=== PATIENT | female | born 1985 | race Two or more races ===

== ENCOUNTER 2018-02-06 09:29 | Emergency (ER) | payer OTHER ==
[2018-02-06 09:39] VITALS: BP 127/68; PULSE 80; TEMP 98.8; BMI 31.4
[2018-02-06] MEDS ORDERED: AZITHROMYCIN 500 MG TABLET PO ONE (10:02)
--- NOTE | 2018-02-06 10:05 | PDOC ---
History of Present Illness - General Chief Complaint: Pain Stated Complaint: VAGINAL DISCOMFORT Time Seen by Provider: 02/06/18 09:52 History Source: Patient Exam Limitations: No Limitations - History of Present Illness Travel History: No Initial Comments: 02/06/18 10:03 32 yr female with c/o vaginal discharge for one week lower pelvic pain, noticed "bumps" with burning to the vaginal area today. Pt denies any nvd. Timing/Duration: reports: constant Quality: reports: moderate Past History - Past Medical History Allergies/Adverse Reactions: Allergies Allergy/AdvReac Type Severity Reaction Status Date / Time No Known Allergies Allergy Verified 02/06/18 09:39 Home Medications: Ambulatory Orders Acyclovir [Zovirax -] 400 mg PO TID #21 tablet 02/06/18 COPD: No Other medical history: gastric sleeve 2013 - Surgical History Abdominal Surgery: Yes (tummy tuck,liposuction 2016, gastric sleeve 2013) Cholecystectomy: Yes - Suicide/Smoking/Psychosocial Hx Smoking History: Never smoked Information on smoking cessation initiated: No Hx Alcohol Use: No Drug/Substance Use Hx: No Substance Use Type: None *Physical Exam - Vital Signs Last Vital Signs Temp Pulse Resp BP Pulse Ox 98.8 F 80 19 127/68 99 02/06/18 09:36 02/06/18 09:36 02/06/18 09:36 02/06/18 09:36 02/06/18 09:36 - Physical Exam General Appearance: Yes: Nourished, Appropriately Dressed HEENT: positive: EOMI, GEN Respiratory/Chest: positive: Lungs Clear, Normal Breath Sounds Cardiovascular: positive: Regular Rhythm, Regular Rate Female Pelvic Exam: positive: discharge, adnexal tenderness, other (multiple vesicles, ulcerations to the outer vaginal area to the anus) Gastrointestinal/Abdominal: positive: Normal Bowel Sounds, Soft Musculoskeletal: positive: Normal Inspection Extremity: positive: Normal Capillary Refill, Normal Inspection, Normal Range of Motion Neurologic: positive: Fully Oriented, Alert, Normal Mood/Affect, Normal Response , Motor Strength 5/5 *DC/Admit/Observation/Transfer Diagnosis at time of Disposition: Herpes genitalia Qualifiers: Herpes simplex infection site: vulvovaginitis Qualified Code(s): A60.04 - Herpesviral vulvovaginitis - Discharge Dispostion Disposition: HOME Condition at time of disposition: Good - Prescriptions Prescriptions: Acyclovir [Zovirax -] 400 mg PO TID #21 tablet - Referrals Referrals: ON STAFF,NOT [Primary Care Provider] - - Patient Instructions Additional Instructions: we will call you with the results of the cultures taken today please start the medication sent to your pharmacy avoid any sexual activity until we have notified you of the cultures please follow up with the panel fitter for follow up next week - Post Discharge Activity
[2018-02-06 10:13] LABS: HCG,QUALITATIVE URINE NEGATIVE
[2018-02-06] MEDS ORDERED: AZITHROMYCIN 250 MG TABLET ONE (10:22)
[2018-02-06 10:37] LABS: URINE APPEARANCE CLEAR; URINE BILIRUBIN NEGATIVE (<2.0 mg/dL); URINE COLOR YELLOW; URINE GLUCOSE (UA) NEGATIVE (NEGATIVE); URINE KETONE NEGATIVE (NEGATIVE); URINE NITRITE NEGATIVE (NEGATIVE); URINE PROTEIN NEGATIVE (NEGATIVE); URINE UROBILINOGEN NEGATIVE mg/dL (0.2-1.0)
[2018-02-06 10:43] LABS: URINE LEUK ESTERASE 1+ (NEGATIVE)
[2018-02-06 11:02] LABS: EPI CELLS RARE /HPF (FEW); URINE MUCUS RARE
== END 2018-02-06 12:42 | disposition home or self-care (01) ==
LOC: JERFT 09:29
DX: A60.04 Herpesviral vulvovaginitis (principal)
CPT/HCPCS: 36415; 81003; 81015; 84703; 87086; 87255; 87389; 87491; 87591; 96372; 99281-25

== ENCOUNTER 2018-10-08 14:59 | Emergency (ER) | payer OTHER ==
[2018-10-08 15:05] VITALS: BP 148/82; PULSE 86; TEMP 97.7; BMI 32.3
--- NOTE | 2018-10-08 15:40 | PDOC ---
History of Present Illness - General Chief Complaint: Pain, Acute Stated Complaint: PELVIC DISCOMFORT Time Seen by Provider: 10/08/18 15:40 History Source: Patient Exam Limitations: No Limitations - History of Present Illness Initial Comments: 10/08/18 16:00 32 year old female A1 8 weeks by LMP presented to ED for LLQ pain x2 days, worsening today.Pt stated she has had this pain intermittently the last 2 weeks, but it was more intense today. Pt stated the pain was so intense today that she felt short of breath, and that is why she came to ED today. Pt denied vaginal bleeding, lightheadedness, dysuria. Pt stated she has not been evaluated by OB or had an ultrasound performed. Pt does not have PCP. PCP: none OB: none Allergies: NKDA Past History - Past Medical History Allergies/Adverse Reactions: Allergies Allergy/AdvReac Type Severity Reaction Status Date / Time No Known Allergies Allergy Verified 10/08/18 15:03 Home Medications: Ambulatory Orders Acyclovir [Zovirax -] 400 mg PO TID #21 tablet 02/06/18 COPD: No - Surgical History Abdominal Surgery: Yes (tummy maliha,liposuction 2016, gastric sleeve 2013) Cholecystectomy: Yes - Suicide/Smoking/Psychosocial Hx Smoking History: Never smoked Hx Alcohol Use: No Drug/Substance Use Hx: No Substance Use Type: None Review of Systems - Review of Systems Able to Perform ROS?: Yes Comments:: 10/08/18 16:02 General: denied fever, chills, night sweats, generalized weakness. HEENT: denied sore throat, rhinorrhea, ear pain. Heart: denied chest pain, palpitations, syncope, lower extremity swelling, diaphoresis. Respiratory: admitted to shortness of breath. denied cough, sputum production, hemoptysis. Abdomen: denied abdominal pain, nausea, vomiting, diarrhea, constipation, blood in stool. : admitted to pelvic pain. denied dysuria, increased urinary frequency, hematuria, urinary incontinence, flank pain. Back: denied back pain. Musculoskeletal: denied joint pain, muscle pain, joint swelling. Neurological: denied headache, dizziness, numbness, tingling, weakness. Skin: denied rash, laceration, abrasion. *Physical Exam - Vital Signs Last Vital Signs Temp Pulse Resp BP Pulse Ox 97.7 F 86 18 148/82 100 10/08/18 15:03 10/08/18 15:03 10/08/18 15:03 10/08/18 15:03 10/08/18 15:03 - Physical Exam Comments: 10/08/18 16:03 Constitutional: Well-nourished, Well-developed, appearing stated age. HEENT: head is normocephalic, atraumatic. EOMI. PERRLA. Neck: supple. Full ROM. Heart: regular rhythm. no murmurs, rubs or gallops. Lungs: clear to auscultation bilaterally. no crackles, rhonchi or wheezing. no stridor. Abdomen: soft, flat. tenderness to palpation of LLQ. normal bowel sounds. no rebound, guarding, masses. Pelvic: normal external genitalia. no blood in vaginal canal. increased vascularity to cervix. cervical os closed. no CMT. left sided adnexal tenderness. Extremities: Peripheral pulses intact. No lower extremity edema. Neurological: CN 2-12 grossly intact. Moves all four extremities. Psych: awake, alert, oriented x3. Follows commands. Answers questions appropriately. Moderate Sedation - Procedure Monitoring Vital Signs: Procedure Monitoring Vital Signs Temperature 97.7 F 10/08/18 15:03 Pulse Rate 86 10/08/18 15:03 Respiratory Rate 18 10/08/18 15:03 Blood Pressure 148/82 10/08/18 15:03 O2 Sat by Pulse Oximetry (%) 100 10/08/18 15:03 ED Treatment Course - LABORATORY CBC & Chemistry Diagram: 10/08/18 16:30 10/08/18 16:30 Medical Decision Making - Medical Decision Making 10/08/18 16:03 32 year old female A1 8 weeks by LMP presented to ED for LLQ x2 weeks, worsening today. Initial Vital Signs Temp Pulse Resp BP Pulse Ox 97.7 F 86 18 148/82 100 10/08/18 15:03 10/08/18 15:03 10/08/18 15:03 10/08/18 15:03 10/08/18 15:03 Afebrile. No tachycardia. No tachypnea. Mild hypertension. No hypoxia on room air. o Labs ordered: CBC, CMP, T/S, coags, beta quant c Imaging ordered: TVUS g Medications ordered: Tylenol IV 10/08/18 17:02 c TVUS report: single viable intrauterine gestation at approximately 6 weeks 6 days. Subchorionic implantation bleed. small bilateral ovarian follicles/cysts. HR 132. CBC WBC 7.5 K/mm3 (4.0-10.0) 10/08/18 16:30 RBC 4.46 M/mm3 (3.60-5.2) 10/08/18 16:30 Hgb 14.4 GM/dL (10.7-15.3) 10/08/18 16:30 Hct 41.4 % (32.4-45.2) 10/08/18 16:30 MCV 93.0 fl (80-96) 10/08/18 16:30 MCH 32.4 pg (25.7-33.7) 10/08/18 16:30 MCHC 34.8 g/dl (32.0-36.0) 10/08/18 16:30 RDW 12.9 % (11.6-15.6) 10/08/18 16:30 Plt Count 261 K/MM3 (134-434) 10/08/18 16:30 MPV 8.6 fl (7.5-11.1) 10/08/18 16:30 Absolute Neuts (auto) 4.8 K/mm3 (1.5-8.0) 10/08/18 16:30 Neutrophils % 64.7 % (42.8-82.8) 10/08/18 16:30 Lymphocytes % 25.6 % (8-40) 10/08/18 16:30 Monocytes % 9.1 % (3.8-10.2) 10/08/18 16:30 Eosinophils % 0.2 % (0-4.5) 10/08/18 16:30 Basophils % 0.4 % (0-2.0) 10/08/18 16:30 Nucleated RBC % 0 % (0-0) 10/08/18 16:30 No leukocytosis. No anemia. 10/08/18 17:17 Urine Test Results Urine Color Yellow 10/08/18 16:30 Urine Appearance Clear 10/08/18 16:30 Urine pH 6.0 (5.0-8.0) 10/08/18 16:30 Ur Specific Dexter 1.026 (1.010-1.035) 10/08/18 16:30 Urine Protein Negative (NEGATIVE) 10/08/18 16:30 Urine Glucose (UA) Negative (NEGATIVE) 10/08/18 16:30 Urine Ketones Trace (NEGATIVE) H 10/08/18 16:30 Urine Blood Negative (NEGATIVE) 10/08/18 16:30 Urine Nitrite Negative (NEGATIVE) 10/08/18 16:30 Urine Bilirubin Negative (<2.0 mg/dL) 10/08/18 16:30 Ur Leukocyte Esterase Negative (NEGATIVE) 10/08/18 16:30 No evidence of UTI. 10/08/18 17:22 INR, PTT INR 0.99 (0.83-1.09) 10/08/18 16:30 10/08/18 17:43 CMP Sodium 138 mmol/L (136-145) 10/08/18 16:30 Potassium 4.2 mmol/L (3.5-5.1) 10/08/18 16:30 Chloride 106 mmol/L (98-107) 10/08/18 16:30 Carbon Dioxide 25 mmol/L (21-32) 10/08/18 16:30 Anion Gap 8 MMOL/L (8-16) 10/08/18 16:30 BUN 12 mg/dL (7-18) 10/08/18 16:30 Creatinine 0.6 mg/dL (0.55-1.3) 10/08/18 16:30 Creat Clearance w eGFR > 60 (>60) 10/08/18 16:30 Random Glucose 77 mg/dL (74-106) 10/08/18 16:30 Calcium 9.0 mg/dL (8.5-10.1) 10/08/18 16:30 Total Bilirubin 0.3 mg/dL (0.2-1) 10/08/18 16:30 AST 8 U/L (15-37) L 10/08/18 16:30 ALT 13 U/L (13-61) 10/08/18 16:30 Alkaline Phosphatase 56 U/L (45-117) 10/08/18 16:30 Total Protein 7.3 g/dl (6.4-8.2) 10/08/18 16:30 Albumin 3.7 g/dl (3.4-5.0) 10/08/18 16:30 Beta HCG, Quant 38823.2 mIU/ml 10/08/18 16:30 No electrolyte abnormalities. No RACHEL. No transaminitis. Beta Quant [id number] Results explained to patient. Copy of US report given to patient. Pt informed to follow up with OB. Pt discharged. *DC/Admit/Observation/Transfer Diagnosis at time of Disposition: 6 weeks gestation of , Pelvic pain - Discharge Dispostion Disposition: HOME Condition at time of disposition: Stable Decision to Admit order: No - Referrals - Patient Instructions Additional Instructions: DOCTORS INSTRUCTIONS: You were seen today for pelvic pain. Your lab work was normal. Your ultrasound showed a 6 week 6 day in the uterus with a small subchorionic bleed. Follow up on this finding with your OBGYN on this finding. I have provided you with a referral for Dr. Lagos or Alcira Gonsalez. Call today and ask for the soonest appointment. Tell them you were seen in the Emergency Department and told to follow up in 1-2 days. Your care is not complete until you follow up. Take all the paperwork given to you, including the copy of the ultrasound report to your appointment. Dr. Lagos: [phone] Alcira Gonsalez: [phone] Follow up with a primary care doctor within 4-5 days. Your care is not complete until you follow up. A pamphlet with referral information was given to you. Take all the paperwork given to you today to your appointment. Take Tylenol over the counter for your pain. Take as advised on label. Do not take Ibuprofen/Advil/Aleve/Naproxen, as it is not safe in . Return to the Emergency Department for increasing pain, vaginal bleeding, lightheadedness, chest pain, shortness of breath or any other new, worsening or concerning symptoms. - Post Discharge Activity
[2018-10-08] MEDS ORDERED: ACETAMINOPHEN 1000 MG/100 ML VIAL (NON FORMULARY) IVPB ONE (16:05)
[2018-10-08] MEDS ORDERED: ACETAMINOPHEN 325 MG TABLET (FP) PO ONE (16:05)
[2018-10-08] MEDS ORDERED: ACETAMINOPHEN INJECTION 100 ML IVPB ONE (16:17)
--- NOTE | 2018-10-08 16:42 | PDOC ---
Attending Attestation - HPI HPI: 10/08/18 16:45 The patient is a 32 year old with a past medical history of A1 here today for evaluation of left lower quadrant pain. Patient reports that she is 8 weeks and has been having intermittent left lower quadrant pain for the past 2 weeks which has worsened in the past 2 days. She notes that the pain was so bad today that she felt short of breath and that is why she came to the ER today. Patient denies headache, lightheadedness. Denies fever, chills. Denies chest pain. Denies nausea, vomiting, diarrhea, abdominal pain. Denies vaginal bleeding. Allergies: NKA PCP: none - Medical Decision Making 10/08/18 16:45 Documentation prepared by MERCEDES Cartagena, acting as biomedical electronics technician for Nila Harrison MD. <Eleuterio Lara - Last Filed: 10/08/18 18:17> - Resident Resident Name: Ria Snyder - ED Attending Attestation I have performed the following: I have examined & evaluated the patient, The case was reviewed & discussed with the resident, I agree w/resident's findings & plan, Exceptions are as noted - Physicial Exam PE: GENERAL: Awake, alert, and fully oriented, in no acute distress HEAD: No signs of trauma EYES: PERRLA, EOMI, sclera anicteric, conjunctiva clear ENT: Auricles normal inspection, hearing grossly normal, nares patent, oropharynx clear without exudates. Moist mucosa NECK: Normal ROM, supple, no lymphadenopathy, JVD, or masses LUNGS: Breath sounds equal, clear to auscultation bilaterally. No wheezes, and no crackles HEART: Regular rate and rhythm, normal S1 and S2, no murmurs, rubs or gallops ABDOMEN: Soft, nontender, normoactive bowel sounds. No guarding, no rebound. No masses EXTREMITIES: Normal range of motion, no edema. No clubbing or cyanosis. No cords, erythema, or tenderness NEUROLOGICAL: Cranial nerves II through XII grossly intact. Normal speech, normal gait. Motor and sensation intact SKIN: Warm, Dry, normal turgor, no rashes or lesions noted. - Medical Decision Making Pt with +IUP on ultrasound. Pt given a list of spray cementer providers for follow-up, as well as the contact information for the [facility] if none of the others accept her insurance. Stable for DC home. <Nila Harrison - Last Filed: 10/09/18 07:42>
[2018-10-08 16:43] LABS: URINE APPEARANCE CLEAR; URINE BILIRUBIN NEGATIVE (<2.0 mg/dL); URINE COLOR YELLOW; URINE GLUCOSE (UA) NEGATIVE (NEGATIVE); URINE KETONE TRACE (NEGATIVE); URINE LEUK ESTERASE NEGATIVE (NEGATIVE); URINE NITRITE NEGATIVE (NEGATIVE); URINE PROTEIN NEGATIVE (NEGATIVE); URINE UROBILINOGEN NEGATIVE mg/dL (0.2-1.0)
[2018-10-08 16:47] LABS: BASO % 0.4 % (0-2.0); EOS % 0.2 % (0-4.5); HEMATOCRIT 41.4 % (32.4-45.2); HEMOGLOBIN 14.4 GM/dL (10.7-15.3); LYMPH % 25.6 % (8-40); MCH 32.4 pg (25.7-33.7); MCHC 34.8 g/dl (32.0-36.0); MEAN PLT VOLUME 8.6 fl (7.5-11.1); MONO % 9.1 % (3.8-10.2); NEUT % 64.7 % (42.8-82.8); PLATELET COUNT 261 K/MM3 (134-434); RBC 4.46 M/mm3 (3.60-5.2); RDW 12.9 % (11.6-15.6); WHITE BLOOD COUNT 7.5 K/mm3 (4.0-10.0)
[2018-10-08 17:18] LABS: INR 0.99 (0.83-1.09); PROTHROMBIN TIME (PATIENT) 11.7 SEC (9.7-13.0)
[2018-10-08 17:21] LABS: ACTIVATED PTT 31.1 SECONDS (25.2-36.5)
[2018-10-08 17:27] LABS: ALBUMIN 3.7 g/dl (3.4-5.0); ALK PHOS 56 U/L (45-117); ANION GAP 8 MMOL/L (8-16); BILIRUBIN,TOTAL 0.3 mg/dL (0.2-1); BLOOD UREA NITROGEN 12 mg/dL (7-18); CHLORIDE 106 mmol/L (98-107); CO2 25 mmol/L (21-32); CREATININE 0.6 mg/dL (0.55-1.3); GLUCOSE,RANDOM 77 mg/dL (74-106); POTASSIUM 4.2 mmol/L (3.5-5.1); SGOT/AST 8 U/L (15-37); SGPT/ALT 13 U/L (13-61); SODIUM 138 mmol/L (136-145); TOT PROT 7.3 g/dl (6.4-8.2)
== END 2018-10-08 17:53 | disposition home or self-care (01) ==
LOC: JER 14:59
PROC: 3E033NZ Introduction of Analgesics, Hypnotics, Sedatives into Peripheral Vein, Percutaneous Approach (ICD-10-PCS; principal; 2018-10-08)
DX: O26.891 Other specified pregnancy related conditions, first trimester (principal); R10.2 Pelvic and perineal pain; O34.81 Maternal care for other abnormalities of pelvic organs, first trimester; N83.292 Other ovarian cyst, left side; N83.291 Other ovarian cyst, right side; Z3A.01 Less than 8 weeks gestation of pregnancy
CPT/HCPCS: 36415; 76817-TC; 80053; 81003; 84702; 85025; 85610; 85730; 86850; 86900; 86901; 87086; 96374; 99281-25; J0131

== ENCOUNTER 2019-01-01 20:15 | Emergency (ER) | payer OTHER ==
[2019-01-01 20:22] VITALS: TEMP 98; BMI 35.2
--- NOTE | 2019-01-01 20:23 | PDOC ---
Rapid Medical Evaluation Chief Complaint: Labor Assessment Time Seen by Provider: 01/01/19 20:17 Medical Evaluation: Allergies Allergy/AdvReac Type Severity Reaction Status Date / Time No Known Allergies Allergy Verified 10/08/18 15:03 01/01/19 20:19 The patient presents to the ER for lower abdominal pain and cramping. Currently 5 months (20 weeks and 3 days). She states that the pain feels like tearing sensations. Had a healthy doctors visit today. Hx of jon jett Exam: lower abdominal pain with palpation. BP 130/93 Orders: Pt to got to L&D for evaluation Pt goes to [facility]. Saw Dr. Bashir today. Discharge Disposition - Diagnosis Abdominal pain affecting - Referrals - Patient Instructions - Post Discharge Activity
[2019-01-01 21:28] LABS: URINE APPEARANCE CLOUDY; URINE BILIRUBIN NEGATIVE (NEGATIVE); URINE CASTS 2 /lpf (0-8); URINE COLOR YELLOW; URINE GLUCOSE (UA) NEGATIVE (NEGATIVE); URINE KETONE NEGATIVE (NEGATIVE); URINE LEUK ESTERASE TRACE (NEGATIVE); URINE NITRITE NEGATIVE (NEGATIVE); URINE PROTEIN NEGATIVE (NEGATIVE); URINE RBC 1 /hpf (0-4); URINE UROBILINOGEN 0.2 mg/dL (0.2-1.0); URINE WBC 11 /hpf (0-5)
[2019-01-01 23:39] VITALS: BP 116/83; PULSE 85
== END 2019-01-01 22:25 | disposition home or self-care (01) ==
LOC: JER 20:15
DX: O26.892 Other specified pregnancy related conditions, second trimester (principal); Z3A.20 20 weeks gestation of pregnancy; R10.13 Epigastric pain
CPT/HCPCS: 81003; 87086; 99281-25

== ENCOUNTER 2019-05-17 09:05 | Inpatient (IN) | payer OTHER ==
[2019-05-17 09:55] VITALS: BMI 38.5
[2019-05-17] MEDS ORDERED: DEXTROSE 5%-LACTATED RINGERS 1,000 ML IV SCH (11:30)
[2019-05-17 11:53] LABS: BASO % 0.8 % (0-2.0); EOS % 0.2 % (0-4.5); HEMATOCRIT 34.9 % (32.4-45.2); HEMOGLOBIN 11.9 GM/dL (10.7-15.3); LYMPH % 19.2 % (8-40); MCH 30.7 pg (25.7-33.7); MEAN CELL VOLUME 90.3 fl (80-96); MEAN PLT VOLUME 9.5 fl (7.5-11.1); MONO % 7.3 % (3.8-10.2); NEUT % 72.5 % (42.8-82.8); PLATELET COUNT 234 K/MM3 (134-434); RBC 3.87 M/mm3 (3.60-5.2); RDW 12.9 % (11.6-15.6); WHITE BLOOD COUNT 7.8 K/mm3 (4.0-10.0)
[2019-05-17 12:16] LABS: INR 0.91 (0.83-1.09); PROTHROMBIN TIME (PATIENT) 10.7 SEC (9.7-13.0)
[2019-05-17 12:18] LABS: ACTIVATED PTT 30.2 SECONDS (25.2-36.5)
[2019-05-17 12:22] LABS: BLOOD UREA NITROGEN 12.5 mg/dL (7-18); CALCIUM 8.5 mg/dL (8.5-10.1); CREATININE 0.7 mg/dL (0.55-1.3); POTASSIUM 4.1 mmol/L (3.5-5.1)
[2019-05-17] MEDS ORDERED: DINOPROSTONE 10 MG VAGINAL SUPPOSITORY VG ONE (13:10)
[2019-05-17] MEDS ORDERED: SODIUM PHOSPHATE/NA BIPHOS 133 ML ENEMA PR ONE (13:32)
--- NOTE | 2019-05-17 13:58 | HP ---
Past Medical History - Primary Care Physician PCP:: Brittni Canales - Admission Chief Complaint: 33 yrs 39.6/7 weeks with oligo, sga , send from [facility] dept for induction & delivery ,. 05/17/19 sono 38.3/7 weeks , edc 05/28/19 TRUDY 3.2, , bpp 6/8 0 for afv , efw 5'6"(<3%tile) , vx , ant placenta History of Present Illness: PNC at , [facility] , Wt gain 21 lbs panel : 11/05/18 : O pos, Rpr nr, Hbsag neg , Rubella pos, Varicella pos , Sickle neg , , pap nilm, hpv neg, gc/ct neg 01/29/19 : quantiferon neg , 1 hr gct 93 , rpr nr 36 weeks cultures 05/02/19 : gbs neg, Hiv neg , gc/ct neg h/h 12.1/38.0 , plt 260 sono done by [facility] : neg NT & AFP she was followed for growth , SGA noted, bpp q 2 weeks & nst weekly was done History Source: Patient, Medical Record Limitations to Obtaining History: No Limitations - Past Medical History SPECIAL EDUCATION SUPERINTENDENT: No: Migraine, Seizure Cardiovascular: No: HTN, Murmur Pulmonary: No: Asthma Gastrointestinal: Yes: Other (h/o Gastric Sleeve for morbid obesity 2013) Hepatobiliary: Yes: Choledocholithiasis (lap choly in 2015) Renal/: No: Renal Failure, Renal Inusuff, BPH, Cancer, Hematuria, Hemodialysis , Neurogenic Bladder, Renal Calculi, UTI, Other ...: 2 ...Para: 0 ...Induced : 1 (2017) ...LMP: 08/15/18 ... Weeks Gestation by Dates: 39.2 ...EDC by Dates: 05/22/19 ...EDC by Sono: 05/18/19 (39.6) Infectious Disease: No: AIDS, C-Diff, Herpes Zoster, HIV, MRSA, STD's, Tuberculosis, VREF, Other Psych: No: Addictions, Anxiety, Bipolar, Depression, Panic, Psychosis, Schizophrenia, Other - Past Surgical History Past Surgical History: Yes: Cholecystectomy (2015) Hx Myomectomy: No Hx Transabdominal Cerclage: No Additional Surgical History: Gastric Sleeve in 2014-. Abdominoplasty : [address] - Smoking History Smoking history: Never smoked Have you smoked in the past 12 months: No - Alcohol/Substance Use Hx Alcohol Use: No History of Substance Use: reports: None Home Medications - Allergies Allergies/Adverse Reactions: Allergies Allergy/AdvReac Type Severity Reaction Status Date / Time No Known Allergies Allergy Verified 01/01/19 20:22 - Home Medications Home Medications: Ambulatory Orders Ferrous Sulfate [Iron] 325 mg PO ASDIR 01/01/19 Vitamins (Sjr) - 1 tab PO DAILY 01/01/19 Physical Exam - Maternity Vital Signs: Vital Signs Temperature 98.7 F 05/17/19 10:00 Pulse Rate 58 L 05/17/19 13:00 Respiratory Rate 18 05/17/19 13:00 Blood Pressure 122/68 05/17/19 13:00 O2 Sat by Pulse Oximetry (%) Selected Entries 05/17/19 09:46 Weight 239 lb Constitutional: Yes: Well Nourished, Obese Eyes: Yes: WNL HENT: Yes: WNL, Normocephalic Neck: Yes: WNL Cardiovascular: Yes: WNL, Regular Rate and Rhythm Breast(s): Yes: WNL - Abdominal Exam/OB Fundal Height: 35 Number of Fetuses: Single Presentation: Vertex Contractions: No Monitor Mode: External Heart Rate (range): 145 Heart Rate Location: Midline Category: I Accelerations: Uniform Decelerations: None - Vaginal Exam/OB Vaginal Bleediing: No Speculum Exam: No Dilatation (cm): 1 Effacement (%): 50 Amniotic Membrane Status: Intact Presentation: Vertex/Position (exam at 1.10 P M) Station: -2 - Physical Exam Extremities: Yes: WNL. No: Calf Tenderness Edema: LLE: 1+, RLE: 1+ Integumentary: Yes: Tattoos Deep Tendon Reflex Grade: Normal +2 ...Motor Strength: WNL Psychiatric: Yes: WNL, Alert, Oriented - Labs Lab Results: CBC, BMP 05/17/19 11:45 05/17/19 11:45 Laboratory Tests 05/17/19 05/17/19 05/17/19 11:45 11:45 11:45 PT with INR 10.70 INR 0.91 PTT (Actin FS) 30.2 RPR Titer Nonreactive Blood Type O POSITIVE Antibody Screen Negative Problem List - Problems (1) with 39 completed weeks gestation Code(s): Z3A.39 - 39 WEEKS GESTATION OF (2) Oligohydramnios in third trimester Code(s): O41.03X0 - OLIGOHYDRAMNIOS, THIRD TRIMESTER, NOT APPLICABLE OR UNSP (3) Small for gestational age fetus affecting management of mother Code(s): O36.5990 - MATERN CARE FOR OTH OR SUSP POOR FETL GRTH, UNSP TRI, UNSP Qualifiers: Trimester: third trimester (4) Obesity (BMI 30-39.9) Code(s): E66.9 - OBESITY, UNSPECIFIED Assessment/Plan 33 yrs , 39 .6 weeks by early sono , gbs neg, diagnosed SGA <3 %tile, oligo 3.2 cm TRUDY admitted for induction of labor. Plan Cervidil inserted at 1.10 pM Trial of vaginal delivery
--- NOTE | 2019-05-17 17:05 | PN ---
Progress Note (short form) - Note Progress Note: pt c/o pain , uc uc are not seen on monotor , may be due to the way pt is lying fhr 140-150 cat-1 pelvic 2 cm/ 60 % / mi/ vx -2/-1 / pelvis denzel s/p cervidil since 1.10 pm Selected Entries 05/17/19 05/17/19 14:00 15:00 Temperature 98.2 F Pulse Rate 62 68 Blood Pressure 120/60 . pt counselled to wait until no longer can tolerate, before taking pain meds . Problem List - Problems (1) with 39 completed weeks gestation Code(s): Z3A.39 - 39 WEEKS GESTATION OF (2) Oligohydramnios in third trimester Code(s): O41.03X0 - OLIGOHYDRAMNIOS, THIRD TRIMESTER, NOT APPLICABLE OR UNSP (3) Small for gestational age fetus affecting management of mother Code(s): O36.5990 - MATERN CARE FOR OTH OR SUSP POOR FETL GRTH, UNSP TRI, UNSP Qualifiers: Trimester: third trimester (4) Obesity (BMI 30-39.9) Code(s): E66.9 - OBESITY, UNSPECIFIED
[2019-05-17] MEDS ORDERED: PROMETHAZINE HCL 25 MG/1 ML VIAL IVPUSH ONE (17:45)
[2019-05-17] MEDS ORDERED: BUTORPHANOL TARTRATE 1 MG/ML VIAL IVPB ONE (17:45)
[2019-05-17] MEDS ORDERED: PROMETHAZINE HCL 25 MG/1 ML VIAL ONE (17:46)
[2019-05-17] MEDS ORDERED: BUTORPHANOL TARTRATE 1 MG/ML VIAL ONE ×2 (17:46)
--- NOTE | 2019-05-17 17:49 | PN ---
Progress Note, Labor Vaginal Exam #1 Labor Exam Date: 05/17/19 Labor Exam Time: 17:45 Heart Rate (range): 140 Dilatation: 3-4 Effacement (%): 70 Amniotic Membrane Status: Ruptured (SROM at 17.35 Hr) Presentation: Vertex/Position Station: -1 Remarks: variable decel , , fhr 140-150 uc unable to monitor well cervidil not removed pt c/o pain requests pain meds epidural declined plan stadol2 mg + phenrgan 25 mg iv stat Selected Entries 05/17/19 05/17/19 17:00 18:21 Temperature 98.4 F Pulse Rate 100 H Blood Pressure 124/73 Vaginal Exam #2 Labor Exam Date: 05/17/19 Labor Exam Time: 18:25 Heart Rate (range): 150-165 Dilatation: 4-5 Effacement (%): 70 Amniotic Membrane Status: Ruptured Presentation: Vertex/Position Station: -1 Remarks: fhr cat-1 , occasional variable decel noted . cervidil was removed at 6.00 pM Ext toco unable to monitor UC IUPC attempted twice, unable to advance beyond head , iupc was taken out . , Vaginal Exam #3 Labor Exam Date: 05/17/19 Labor Exam Time: 19:00 Heart Rate (range): 90-140 Dilatation: 10 Effacement (%): 100 Amniotic Membrane Status: Ruptured Station: +2 (+2/+3) Remarks: FHR cat-2 , deep variables with UC pt pushing
[2019-05-17] MEDS ORDERED: OXYTOCIN 20 UNITS in 0.9% NS 20 UNIT/1,000 ML INFUS.BAG IV ONE (19:03)
[2019-05-17] MEDS ORDERED: LIDOCAINE HCL 1% PRESERVATIVE FREE - 30ML VIAL ONE (19:03)
[2019-05-17] MEDS ORDERED: BENZOCAINE 20% 57 GM BOTTLE TP PRN (19:54)
[2019-05-17] MEDS ORDERED: BENZOCAINE 28 GM HEMORRHOIDAL OINTMENT TP PRN (19:54)
[2019-05-17] MEDS ORDERED: METHYLERGONOVINE MALEATE 0.2 MG/1 ML AMP IM PRN (19:54)
[2019-05-17] MEDS ORDERED: WITCH HAZEL 50% (TUCKS) 40 PAD/JAR PAD TP PRN (19:54)
[2019-05-17] MEDS ORDERED: BISACODYL 10 MG SUPP.RECT RC PRN (19:54)
[2019-05-17] MEDS ORDERED: oxyCODONE HCL 5 MG TABLET PO PRN (19:54)
[2019-05-17] MEDS ORDERED: OXYTOCIN 20 UNITS in 0.9% NS 20 UNIT/1,000 ML INFUS.BAG IV SCH (20:00)
--- NOTE | 2019-05-17 20:04 | PN ---
Delivery - Delivery Vaginal Delivery: No Problems, Spontaneous (, vx presentaion, Regina position, 2 loops of cord around neck , loose untangled, shoulder delivery without difficulty ,oral & nasal suction done at perineum . delayed cord clamping done . cord segment cut for cord gas, cord blood collected, 3 bv cord noted , placenta delivered completely with membranes. Lunder local anesthesia. bladder inear 2 cm vaginal lacerarion bleeding sutured with chr catgut# 2/0 under local anesthesia . AK exam mucosa & sphincter intact) EBL (cc): 150 Delivery, Single - Stages of Labor Date 1st Stage Initiatied: 05/17/19 Time 1st Stage Initiated: 16:30 Date 2nd Stage Initiated: 05/17/19 Time 2nd Stage Initiated: 19:00 Date of Delivery: 05/17/19 Time of Delivery: 19:14 Date Placenta Delivered: 05/17/19 Time Placenta Delivered: 19:20 Placenta: Yes: Spontaneous, Uterine Exploration - Condition of Infant Infant Gender: Male Weight: 5 lb 6 oz Position: Left, OA (cord around neck x2) Total Hours ROM (Hrs/Mins): 1hr45 min - 1 Minute Total Score: 9 5 Minutes Total Score: 9 - Feeding Plan Initial Plan: Exclusive throughout hospitalization Remarks - Remarks Remarks: 33 yrs , 39.6/7 weeks iup admitted for induction of labor due to Oligohydramnios & SGA cervidl placed & taken out after 4-5 hrs stadol 2 mg + phenrgan for labor analgesia was given v/s stable
[2019-05-18] MEDS: IBUPROFEN 600 MG TABLET (FP) PO PRN ×2 (06:06→22:57)
[2019-05-18] MEDS: ACETAMINOPHEN 325 MG TABLET (FP) PO PRN ×2 (06:06→22:57)
--- NOTE | 2019-05-18 07:57 | PN ---
Post Progress Note - Subjective Subjective: no complains pain scale 3-4/10 for cramps voiding well Post Day: 1 Type of Delivery: Vital Signs: Vital Signs Temperature 98.7 F 05/18/19 06:00 Pulse Rate 69 05/18/19 06:00 Respiratory Rate 18 05/18/19 06:00 Blood Pressure 121/73 05/18/19 06:00 O2 Sat by Pulse Oximetry (%) 100 05/17/19 20:15 Breast Exam: Yes: Soft, Other (attempting BF ). No: Engorged Uterus: Yes: Fundus Firm, Fundus below umbilicus, Non-tender, Other (obese abdomen ) Lochia: Yes: Rubra Lochia, amount: Moderate Extremities: Yes: Calves non-tender Perineum: Yes: Intact Activity: Ambulating - Labs Labs: CBC WBC 7.8 K/mm3 (4.0-10.0) 05/17/19 11:45 RBC 3.87 M/mm3 (3.60-5.2) 05/17/19 11:45 Hgb 11.9 GM/dL (10.7-15.3) 05/17/19 11:45 Hct 34.9 % (32.4-45.2) D 05/17/19 11:45 MCV 90.3 fl (80-96) 05/17/19 11:45 MCH 30.7 pg (25.7-33.7) 05/17/19 11:45 MCHC 34.0 g/dl (32.0-36.0) 05/17/19 11:45 RDW 12.9 % (11.6-15.6) 05/17/19 11:45 Plt Count 234 K/MM3 (134-434) 05/17/19 11:45 MPV 9.5 fl (7.5-11.1) D 05/17/19 11:45 Absolute Neuts (auto) 5.7 K/mm3 (1.5-8.0) 05/17/19 11:45 Neutrophils % 72.5 % (42.8-82.8) 05/17/19 11:45 Lymphocytes % 19.2 % (8-40) D 05/17/19 11:45 Monocytes % 7.3 % (3.8-10.2) 05/17/19 11:45 Eosinophils % 0.2 % (0-4.5) 05/17/19 11:45 Basophils % 0.8 % (0-2.0) 05/17/19 11:45 Nucleated RBC % 0 % (0-0) 05/17/19 11:45 Problem List - Problems (1) with 39 completed weeks gestation Code(s): Z3A.39 - 39 WEEKS GESTATION OF (2) Oligohydramnios in third trimester Code(s): O41.03X0 - OLIGOHYDRAMNIOS, THIRD TRIMESTER, NOT APPLICABLE OR UNSP (3) Small for gestational age fetus affecting management of mother Code(s): O36.5990 - MATERN CARE FOR OTH OR SUSP POOR FETL GRTH, UNSP TRI, UNSP Qualifiers: Trimester: third trimester (4) Obesity (BMI 30-39.9) Code(s): E66.9 - OBESITY, UNSPECIFIED (5) (normal spontaneous vaginal delivery) Code(s): O80 - ENCOUNTER FOR FULL-TERM UNCOMPLICATED DELIVERY (6) Encounter for care and examination after delivery Code(s): Z39.2 - ENCOUNTER FOR ROUTINE FOLLOW-UP Assessment/Plan stable pp cbc pending discharge tomorrow
[2019-05-18] MEDS: FERROUS SO4 325 MG TABLET (FP) PO SCH ×2 (08:15→17:25)
[2019-05-18] MEDS: PRENATAL VITAMINS W/ FOLIC ACID TABLET (FP) PO SCH (09:52)
[2019-05-18 11:00] LABS: BASO % 0.2 % (0-2.0); EOS % 0.1 % (0-4.5); HEMATOCRIT 32.9 % (32.4-45.2); LYMPH % 14.4 % (8-40); MCH 30.6 pg (25.7-33.7); MCHC 33.5 g/dl (32.0-36.0); MEAN CELL VOLUME 91.4 fl (80-96); MONO % 7.2 % (3.8-10.2); NEUT % 78.1 % (42.8-82.8); PLATELET COUNT 208 K/MM3 (134-434); RDW 13.4 % (11.6-15.6); WHITE BLOOD COUNT 11.3 K/mm3 (4.0-10.0)
[2019-05-18] MEDS ORDERED: SENNOSIDES/DOCUSATE COMBO (SENNA PLUS) TABLET (UD) PO PRN (22:00)
[2019-05-19] MEDS: FERROUS SO4 325 MG TABLET (FP) PO SCH (08:03)
--- NOTE | 2019-05-19 08:57 | DS ---
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 No: Calf Tenderness Edema: LLE: 1+, RLE: 1+ Integumentary: Yes: Tattoos Neurological: Yes: WNL, Alert, Oriented ...Motor Strength: WNL Psychiatric: Yes: WNL, Alert, Oriented Labs: CBC, BMP 05/18/19 09:59 05/17/19 11:45 Delivery - Delivery Vaginal Delivery: No Problems, Spontaneous (, vx presentaion, Harris position, 2 loops of cord around neck , loose untangled, shoulder delivery without difficulty ,oral & nasal suction done at perineum . delayed cord clamping done . cord segment cut for cord gas, cord blood collected, 3 bv cord noted , placenta delivered completely with membranes. Lunder local anesthesia. bladder inear 2 cm vaginal lacerarion bleeding sutured with chr catgut# 2/0 under local anesthesia . 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: No Infant Gender: Male Weight: 5 lb 6 oz Position: Left, OA (cord around neck x2) Total Hours ROM (Hrs/Mins): 1hr45 min - 1 Minute Total Score: 9 5 Minutes Total Score: 9 - [place] Feeding Plan Initial Plan: Exclusive throughout hospitalization Remarks - Remarks Remarks: 33 yrs , 39.6/7 weeks iup admitted for induction of labor due to Oligohydramnios & SGA cervidl placed & taken out after 4-5 hrs stadol 2 mg + phenrgan for labor analgesia was given v/s stable pp course uneventful discharge today 05/19/19 Discharge Summary Problems reviewed: Yes Reason For Visit: INDUCTION OF LABOR Current Active Problems Encounter for care and examination after delivery (Acute) (normal spontaneous vaginal delivery) (Acute) Obesity (BMI 30-39.9) (Acute) Oligohydramnios in third trimester (Acute) with 39 completed weeks gestation (Acute) Small for gestational age fetus affecting management of mother (Acute) Procedures: Principal: [facility] Hospital Course: management of labor Health Concerns: Post Instructions DIET: Continue good diet high in protein, calcium, and iron rich foods. Drink at least eight (8) glasses of water daily in addition to other fluids. ___ Regular diet ___ Diabetic Diet MEDICATIONS: Continue vitamins and iron as previously directed. Motrin and Tylenol may be taken for minor discomfort. ACTIVITY: Mild to moderate exercise may be started in two (2) weeks. Take frequent rest periods. Resume normal activity after six (6) week check up. WOUND CARE OF OPERATIVE SITE: Continue use of perineal bottle until vaginal discharge stops. Keep area clean. Shower daily. Keep abdominal wound dry. Report any drainage or redness to physician. Tub baths, tampons and douches are not permitted for 6 weeks. _ct Breast feeding & Bottle feeding BREAST CARE: (For those that are not ): If engorgement occurs: Wear tight fitting bra. Take Tylenol or Motrin for pain. Apply cold packs (ice in bags to each breast ) FAMILY PLANNING: There are many control alternatives to pursue and they should be discussed at your first office visit. You may resume sexual activity after your six (6) week check up. (Remember, is not a contraceptive) NEXT PHYSICIAN APPOINTMENT: Be certain to call for a four-six (4-6) week appointment, unless otherwise directed. Call Clinic or got to Emergency Dept if you have any of the following: Heavy vaginal bleeding Painful urination Leg pain Unusual odor noted to vaginal bleeding High fever Red streaking noted on breast Plan of Treatment: pp visit Goals: pp wellbeing of mother & infant Condition: Stable - Instructions Diet, Activity, Other Instructions: Post Instructions DIET: Continue good diet high in protein, calcium, and iron rich foods. Drink at least eight (8) glasses of water daily in addition to other fluids. ___ Regular diet MEDICATIONS: Continue vitamins and iron as previously directed. Motrin and Tylenol may be taken for minor discomfort. ACTIVITY: Mild to moderate exercise may be started in two (2) weeks. Take frequent rest periods. Resume normal activity after six (6) week check up. WOUND CARE OF OPERATIVE SITE: Continue use of perineal bottle until vaginal discharge stops. Keep area clean. Shower daily. Keep abdominal wound dry. Report any drainage or redness to physician. Tub baths, tampons and douches are not permitted for 6 weeks. _ct Breast feeding & or Bottle feeding BREAST CARE: (For those that are not breast feeding): If engorgement occurs: Wear tight fitting bra. Take Tylenol or Motrin for pain. Apply cold packs (ice in bags to each breast ) FAMILY PLANNING: There are many control alternatives to pursue and they should be discussed at your first office visit. You may resume sexual activity after your six (6) week check up. (Remember, breast feeding is not a contraceptive) NEXT PHYSICIAN APPOINTMENT: Be certain to call for a four -six (4-6) week appointment, unless otherwise directed. Call Clinic or got to Emergency Dept if you have any of the following: Heavy vaginal bleeding Painful urination Leg pain Unusual odor noted to vaginal bleeding High fever Red streaking noted on breast Referrals: Brittni Canales MD [Staff Physician] - Disposition: HOME - Home Medications Comprehensive Discharge Medication List: Ambulatory Orders Ferrous Sulfate [Iron] 325 mg PO ASDIR 01/01/19 Vitamins (Sjr) - 1 tab PO DAILY 01/01/19 Acetaminophen [Tylenol .Regular Strength -] 650 mg PO Q3H PRN tablet 05/18/19 Ferrous Sulfate [Feosol] 325 mg PO BIDWM tab 05/18/19 Ibuprofen [Motrin -] 200 mg PO Q4H PRN tablet 05/18/19 Vitamins (Sjr) - 1 tab PO DAILY tablet 05/18/19 Prescription Drug Monitoring Program (I-STOP) results: I-STOP reviewed and no issues identified
[2019-05-19 08:59] VITALS: BP 112/80; PULSE 73; TEMP 97.6
[2019-05-19] MEDS: PRENATAL VITAMINS W/ FOLIC ACID TABLET (FP) PO SCH (10:09)
== END 2019-05-19 13:30 | disposition home or self-care (01) | DRG 560 ==
LOC: JLDR 09:05 → J3W 21:27
PROVIDERS: ADMIT Obstetrics & Gynecology; ATTEND Obstetrics & Gynecology
PROC: 10E0XZZ Delivery of Products of Conception, External Approach (ICD-10-PCS; principal; 2019-05-17)
PROC: 0HQ9XZZ Repair Perineum Skin, External Approach (ICD-10-PCS; 2019-05-17)
PROC: 3E0P7VZ Introduction of Hormone into Female Reproductive, Via Natural or Artificial Opening (ICD-10-PCS; 2019-05-17)
DX: O36.5930 Maternal care for other known or suspected poor fetal growth, third trimester, not applicable or unspecified (principal); O41.03X0 Oligohydramnios, third trimester, not applicable or unspecified; O70.0 First degree perineal laceration during delivery; O69.81X0 Labor and delivery complicated by cord around neck, without compression, not applicable or unspecified; O99.214 Obesity complicating childbirth; Z3A.39 39 weeks gestation of pregnancy; Z37.0 Single live birth
CPT/HCPCS: 36415; 36600; 59409; 80048; 82803; 85025; 85610; 85730; 86593; 86850; 86900; 86901

== ENCOUNTER 2020-06-03 13:54 | Emergency (ER) | payer OTHER ==
[2020-06-03 14:12] VITALS: BP 130/72; PULSE 73; TEMP 98.9; BMI 32.3
--- OUTSIDE RECORDS SUMMARY | 2020-06-03 14:28 | XMS ---
:1985 Author Organization [facility] Support Name Relationship Address Phone [facility] [place] [address] JASMIN WEBSTER PARTNER [address] [place] [address] UE Unavailable Unavailable Unavailable PAULINA DAS MOTHER [address] [place] [address] JASMIN WEBSTER Unavailable [address] [place] [address] Re-disclosure Warning The records that you are about to access may contain information from federally- assisted alcohol or drug abuse programs. If such information is present, then the following federally mandated warning applies: This information has been disclosed to you from records protected by federal confidentiality rules (42 CFR part 2). The federal rules prohibit you from making any further disclosure of this information unless further disclosure is expressly permitted by the written consent of the person to whom it pertains or as otherwise permitted by 42 CFR part 2. A general authorization for the release of medical or other information is NOT sufficient for this purpose. The Federal rules restrict any use of the information to criminally investigate or prosecute any alcohol or drug abuse patient.The records that you are about to access may contain highly sensitive health information, the redisclosure of which is protected by Article 27-F of the [facility] Public Health law. If you continue you may haveaccess to information: Regarding HIV / AIDS; Provided by facilities licensed or operated by the [facility] Office of Mental Health; or Provided by the [facility] Office for People With Developmental Disabilities. If such information is present, then the following [facility] mandated warning applies: This information has been disclosed to you from confidential records which are protected by state law. State law prohibits you from making any further disclosure of this information without the specific written consent of the person to whom it pertains, or as otherwise permitted by law. Any unauthorized further disclosure in violation of state law may result in a fine or snf sentence or both. A general authorization for the release of medical or other information is NOT sufficient authorization for further disclosure. Encounters Encounter Providers Location Date Indications Data Source(s ) () [facility] 07/04/2019 eCW3 ([facility] 12:00:00 AM [facility] EST - Care) 07/04/2019 12:00:00 AM EST () [facility] 06/13/2019 eCW3 ([facility] 12:00:00 AM [facility] EDT - Care) 06/13/2019 12:00:00 AM EDT (EOB) Established [facility] 05/13/2019 eCW 3 ([facility]:00 [facility] - [facility]) 05/13/2019 12:00:00 AM EDT (EOB) Established [facility] 05/10/2019 eCW 3 ([facility] 12:00:00 [facility]T - Care) 05/10/2019 12:00:00 AM EDT (EOB) Established [facility] 05/02/2019 eCW 3 ([facility] 12:00:00 [facility] EDT - Care) 05/02/2019 12:00:00 AM EDT (EOB) Established [facility] 04/25/2019 eCW 3 ([facility] 12:00:00 [facility] EDT - Care) 04/25/2019 12:00:00 AM EDT (EOB) Established [facility] 04/18/2019 eCW 3 ([facility] 12:00:00 [facility]T - Care) 04/18/2019 12:00:00 AM EDT (EOB) Established [facility] 04/11/2019 eCW 3 ([facility] 12:00:00 [facility] EDT - Care) 04/11/2019 12:00:00 AM EDT (EOB) Established [facility] 04/05/2019 eCW 3 ([facility] 12:00:00 [facility]T - Care) 04/05/2019 12:00:00 AM EDT Insurance Providers Payer name Policy type Policy ID Covered Covered green party's Policy P wilver / Coverage green party ID relationship to [facility] ormation type rodriguez MARICEL [id number] SP [id number] 100 HEALTH NON CAP MEDICAID [id number] SP [id number] Problems, Conditions, and Diagnoses Code Display Name Description Problem Type Effective Dates Data Source(s) E66.09 Other obesity Other obesity due Problem 09/11/2019 eCW3 ([facility] due to excess to excess calories 12:00:00 AM ES T [facility] calories Care) Z68.32 Body mass index Body mass index Problem 09/11/2019 eCW3 ([facility] (BMI) (BMI) 32.0-32.9, 12:00:00 AM EST [facility] 32.0-32.9, adult Care) adult Surgeries/Procedures Procedure Description Date Indications Data Source(s) INJ DEPOPROVERA 150 mg 07/04/2019 eCW3 ([facility] 12:00:00 AM [facility] Health Care) NON-STRESS TEST 05/13/2019 eCW3 ( [facility] 12:00:00 AM ED Health Care) NON-STRESS TEST 05/10/2019 eCW3 ( [facility]-STRESS [facility] 04/25/2019 eCW3 ( [facility] NON-STRESS TEST 04/18/2019 eCW3 ( [facility] 12:00:00 AM ED Health Care) Results ID Date Data Source [id number] 05/25/2020 03:38:00 PM EDT [facility] Name Value Range Interpretation Code Description Data Ksenia rce(s) Supporting Document(s ) SARS-COV-2 [facility] QL RADHA+PROBE This lab was ordered by [employer] SHIMON SALAMANCA and reported by [employer]. ID Date Data Source [id number] 05/11/2020 06:38:00 PM EDT [facility] Name Value Range Interpretation Code Description Data Ksenia rce(s) Supporting Document(s ) SARS-COV-2 [facility] QL RADHA+PROBE This lab was ordered by [employer] SHIMON SALAMANCA and reported by [employer]. ID Date Data Source [id number] 04/21/2020 06:40:00 PM EDT [facility] Name Value Range Interpretation Code Description Data Ksenia rce(s) Supporting Document(s ) SARS-COV-2 [facility] QL RADHA+PROBE This lab was ordered by [facility] SHIMON SALAMANCA and reported by Billeo CHAVO. Procedure Social History Code Duration Value Status Description Data Source(s ) Smoking 03/02/2020 12:00:00 Never Smoker completed Never Smoker e CW3 ([facility]) Smoking 03/02/2020 12:00:00 Never Smoker completed Never Smoker e CW3 ([facility]) Smoking 03/02/2020 12:00:00 Never Smoker completed Never Smoker e CW3 ([facility]) Smoking 03/02/2020 12:00:00 Never Smoker completed Never Smoker e CW3 ([facility]) Smoking 03/02/2020 12:00:00 Never Smoker completed Never Smoker e CW3 ([facility]) Smoking 03/02/2020 12:00:00 Never Smoker completed Never Smoker e CW3 ([facility]) Smoking 03/02/2020 12:00:00 Never Smoker completed Never Smoker e CW3 ([facility]) Smoking 03/02/2020 12:00:00 Never Smoker completed Never Smoker e CW3 ([facility]) Smoking 03/02/2020 12:00:00 Never Smoker completed Never Smoker e CW3 ([facility]) Smoking 12/20/2019 12:00:00 Never Smoker completed Never Smoker e CW3 ([facility]) Smoking 12/20/2019 12:00:00 Never Smoker completed Never Smoker e CW3 ([facility]) Smoking 12/20/2019 12:00:00 Never Smoker completed Never Smoker e CW3 ([facility]) Smoking 12/20/2019 12:00:00 Never Smoker completed Never Smoker e CW3 ([facility]) Smoking 12/20/2019 12:00:00 Never Smoker completed Never Smoker e CW3 ([facility]) Smoking 09/27/2019 12:00:00 Never Smoker completed Never Smoker e CW3 ([facility]) Smoking 07/03/2019 12:00:00 Never Smoker completed Never Smoker e CW3 ([facility]) Vital Signs ID Date Data Source UNK Name Value Range Interpretation Code Description Data Source(s) Diastolic blood 78 mm[Hg] 78 mm[Hg] eCW3 ([facility]) Systolic blood 121 mm[Hg] 121 mm[Hg] eCW3 ([facility]) Body temperature 97.5 [degF] 97.5 [degF] eCW3 ( [facility]) Heart rate 20 /min 20 /min eCW3 ([facility]) Body mass index 34.38 kg/m2 34.38 kg/m2 eCW3 ([facility] (BMI) [Ratio] [facility]) Body weight 213 [lb_av] 213 [lb_av] eCW3 ([facility]) Body height 66 [in_i] 66 [in_i] eCW3 ([facility]) Diastolic blood 85 mm[Hg] 85 mm[Hg] eCW3 ([facility]) Systolic blood 122 mm[Hg] 122 mm[Hg] eCW3 ([facility]) Body temperature 98.3 [degF] 98.3 [degF] eCW3 ( [facility]) Heart rate 20 /min 20 /min eCW3 ([facility]) Body mass index 35.34 kg/m2 35.34 kg/m2 eCW3 ([facility] (BMI) [Ratio] [facility]) Body weight 219 [lb_av] 219 [lb_av] eCW3 ([facility]) Body height 66 [in_i] 66 [in_i] eCW3 ([facility]) Diastolic blood 83 mm[Hg] 83 mm[Hg] eCW3 ([facility]) Systolic blood 119 mm[Hg] 119 mm[Hg] eCW3 ([facility]) Body temperature 98.6 [degF] 98.6 [degF] eCW3 ( [facility]) Heart rate 20 /min 20 /min eCW3 ([facility]) Body mass index 38.253 kg/m2 38.253 kg/m2 eCW3 ([facility] (BMI) [Ratio] [facility]) Body weight 237 [lb_av] 237 [lb_av] eCW3 ([facility]) Body height 66 [in_i] 66 [in_i] eCW3 ([facility]) Diastolic blood 76 mm[Hg] 76 mm[Hg] eCW3 ([facility]) Systolic blood 121 mm[Hg] 121 mm[Hg] eCW3 ([facility]) Body temperature 97.9 [degF] 97.9 [degF] eCW3 ( [facility]) Heart rate 20 /min 20 /min eCW3 ([facility]) Body mass index 38.253 kg/m2 38.253 kg/m2 eCW3 ([facility] (BMI) [Ratio] [facility]) Body weight 237 [lb_av] 237 [lb_av] eCW3 ([facility]) Body height 66 [in_i] 66 [in_i] eCW3 ([facility]) Diastolic blood 78 mm[Hg] 78 mm[Hg] eCW3 ([facility]) Systolic blood 118 mm[Hg] 118 mm[Hg] eCW3 ([facility]) Body temperature 98.2 [degF] 98.2 [degF] eCW3 ( [facility]) Heart rate 20 /min 20 /min eCW3 ([facility]) Body mass index 38.737 kg/m2 38.737 kg/m2 eCW3 ([facility] (BMI) [Ratio] [facility]) Body weight 240 [lb_av] 240 [lb_av] eCW3 ([facility]) Body height 66 [in_i] 66 [in_i] eCW3 ([facility]) Diastolic blood 76 mm[Hg] 76 mm[Hg] eCW3 ([facility]) Systolic blood 113 mm[Hg] 113 mm[Hg] eCW3 ([facility]) Body temperature 98.0 [degF] 98.0 [degF] eCW3 ( [facility]) Heart rate 20 /min 20 /min eCW3 ([facility]) Body mass index 38.737 kg/m2 38.737 kg/m2 eCW3 ([facility] (BMI) [Ratio] [facility]) Body weight 240 [lb_av] 240 [lb_av] eCW3 ([facility]) Body height 66 [in_i] 66 [in_i] eCW3 ([facility]) Diastolic blood 75 mm[Hg] 75 mm[Hg] eCW3 ([facility]) Systolic blood 107 mm[Hg] 107 mm[Hg] eCW3 ([facility]) Body temperature 97.7 [degF] 97.7 [degF] eCW3 ( [facility]) Heart rate 20 /min 20 /min eCW3 ([facility]) Body mass index 38.091 kg/m2 38.091 kg/m2 eCW3 ([facility] (BMI) [Ratio] [facility]) Body weight 236 [lb_av] 236 [lb_av] eCW3 ([facility]) Body height 66 [in_i] 66 [in_i] eCW3 ([facility]) Diastolic blood 74 mm[Hg] 74 mm[Hg] eCW3 ([facility]) Systolic blood 106 mm[Hg] 106 mm[Hg] eCW3 ([facility]) Body temperature 98.0 [degF] 98.0 [degF] eCW3 ( [facility]) Heart rate 20 /min 20 /min eCW3 ([facility]) Body mass index 37.801 kg/m2 37.801 kg/m2 eCW3 ([facility] (BMI) [Ratio] [facility]) Body weight 234.2 234.2 [lb_av] eCW3 ([facility] [lb_av] [facility]) Body height 66 [in_i] 66 [in_i] eCW3 ([facility]) Diastolic blood 71 mm[Hg] 71 mm[Hg] eCW3 ([facility]) Systolic blood 104 mm[Hg] 104 mm[Hg] eCW3 ([facility]) Body temperature 98.0 [degF] 98.0 [degF] eCW3 ( [facility]) Heart rate 20 /min 20 /min eCW3 ([facility]) Body mass index 37.962 kg/m2 37.962 kg/m2 eCW3 ([facility] (BMI) [Ratio] [facility]) Body weight 235.2 235.2 [lb_av] eCW3 ([facility] [lb_av] [facility]) Body height 66 [in_i] 66 [in_i] eCW3 ([facility])
--- NOTE | 2020-06-03 14:47 | PDOC ---
History of Present Illness - General Chief Complaint: Injury Stated Complaint: LT PINKY TOE INJURY Time Seen by Provider: 06/03/20 14:14 - History of Present Illness Initial Comments: 06/03/20 14:45 34-year-old female presents for evaluation of left fifth toe pain after a wheelchair rolled over her toe yesterday. Past History - Medical History Allergies/Adverse Reactions: Allergies Allergy/AdvReac Type Severity Reaction Status Date / Time No Known Allergies Allergy Verified 06/03/20 14:12 Home Medications: Ambulatory Orders Ferrous Sulfate [Iron] 325 mg PO ASDIR 01/01/19 Vitamins (Sjr) - 1 tab PO DAILY 01/01/19 Acetaminophen [Tylenol .Regular Strength -] 650 mg PO Q3H PRN tablet 05/18/19 Ferrous Sulfate [Feosol] 325 mg PO BIDWM tab 05/18/19 Ibuprofen [Motrin -] 200 mg PO Q4H PRN tablet 05/18/19 Vitamins (Sjr) - 1 tab PO DAILY tablet 05/18/19 Asthma: No Cancer: No Cardiac Disorders: No COPD: No Diabetes: No HTN: No Seizures: No Thyroid Disease: No - Surgical History Abdominal Surgery: Yes (tummy tuck,liposuction 2016, gastric sleeve 2013) Cholecystectomy: Yes - Reproductive History Is Patient Now?: No - Psycho-Social/Smoking History Smoking History: Never smoked Have you smoked in the past 12 months: No Review of Systems - Review of Systems Musculoskeletal: Yes: See HPI, Joint Pain *Physical Exam - Vital Signs Last Vital Signs Temp Pulse Resp BP Pulse Ox 98.9 F 73 18 130/72 99 06/03/20 14:10 06/03/20 14:10 06/03/20 14:10 06/03/20 14:10 06/03/20 14:10 - Physical Exam 06/03/20 14:45 Lateral aspect of left foot is mildly ecchymotic and swollen tenderness at the left toe at the MTPJ no gross sensorimotor deficits neurovascular intact ED Treatment Course - RADIOLOGY Radiology Studies Ordered: Category Date Time Status TOE(S) LEFT [RAD] Stat Radiology 06/03/20 14:15 Taken Medical Decision Making - Medical Decision Making 06/03/20 14:46 No fracture trauma or destructive process on left toe radiograph. Most likely soft tissue crush injury. Weight-bear as tolerated with postop shoe and crutches follow-up with orthopedic surgery Tylenol and Motrin for pain. Patient assures me there is no chance of . Discharge - Discharge Information Problems reviewed: Yes Clinical Impression/Diagnosis: Crush injury of left foot Condition: Stable Disposition: HOME - Admission No - Follow up/Referral Referrals: Eleuterio Szymanski MD [Primary Care Provider] - Brayan Mcnamara DO [Staff Physician] - - Patient Discharge Instructions Additional Instructions: May weight-bear as tolerated with crutches. Tylenol and Motrin for pain. Return to the emergency room for worsening symptoms. Without fail follow-up with orthopedic surgery in 2 to 3 days for further evaluation and treatment options. - Post Discharge Activity
== END 2020-06-03 15:00 | disposition home or self-care (01) ==
LOC: JERFT 13:54
DX: S97.82XA Crushing injury of left foot, initial encounter (principal)
CPT/HCPCS: 73660-TC-LT-FY; 99284-25

== ENCOUNTER 2020-08-29 11:20 | Emergency (ER) | payer OTHER ==
[2020-08-29 11:45] VITALS: BP 127/81; PULSE 91; BMI 32.5
[2020-08-29] MEDS ORDERED: KETOROLAC TROMETHAMINE 30 MG/1 ML VIAL IM ONE (12:23)
[2020-08-29] MEDS ORDERED: KETOROLAC TROMETHAMINE 30 MG/1 ML VIAL ONE (12:29)
[2020-08-29 12:57] LABS: EPI CELLS 4 /uL (0-25.1); HYALINE CASTS 3 /uL (0-3.1); PH,URINE 5.5 (5.0-8.0); URINE APPEARANCE CLEAR; URINE BACTERIA 484 /uL (0-1359); URINE BILIRUBIN NEGATIVE (NEGATIVE); URINE COLOR YELLOW; URINE GLUCOSE (UA) NEGATIVE (NEGATIVE); URINE KETONE NEGATIVE (NEGATIVE); URINE LEUK ESTERASE 1+ (NEGATIVE); URINE NITRITE NEGATIVE (NEGATIVE); URINE PROTEIN NEGATIVE (NEGATIVE); URINE RBC 6 /uL (0-23.9); URINE UROBILINOGEN 0.2 mg/dL (0.2-1.0); URINE WBC 180 /uL (0-25.8)
[2020-08-29 13:38] LABS: HCG,QUALITATIVE URINE NEGATIVE
[2020-08-29] MEDS ORDERED: LIDOCAINE 5% TOPICAL PATCH TP ONE (13:44)
[2020-08-29] MEDS ORDERED: LIDOCAINE 5% TOPICAL PATCH ONE (13:55)
[2020-08-29] MEDS ORDERED: LIDOCAINE PATCH REMOVAL MC SCH (22:00)
== END 2020-08-29 14:36 | disposition home or self-care (01) ==
LOC: JERFT 11:20
PROC: 3E0233Z Introduction of Anti-inflammatory into Muscle, Percutaneous Approach (ICD-10-PCS; principal; 2020-08-29)
DX: M54.42 Lumbago with sciatica, left side (principal); N30.00 Acute cystitis without hematuria
CPT/HCPCS: 72100-TC-FY; 81003; 84703; 87086; 99284-25